=== PATIENT | female | born 1970 | race Caucasian/White ===

== ENCOUNTER → 2018-08-16 | Outpatient (REF) | payer OTHER ==
[~2018-08-16] MED LIST: AMBI10TA PO; AMIT25TA PO; BUPR10TASR PO; CLON1TAB8 PO; CLON2TAB7 PO; HYDR12.55 PO; IBUP80TA PO; METH75TA PO; PERCOCET PO; WELL75TA PO; ibuprofen OR; tylenol OR
[2018-08-16 20:49] LABS: ALBUMIN 3.8 GM/DL (3.2-5.2); ALT/SGPT 10 U/L (12-78); BILIRUBIN,TOTAL 0.3 MG/DL (0.2-1.0); BLOOD UREA NITROGEN 11 MG/DL (7-18); CALCIUM LEVEL 8.3 MG/DL (8.5-10.1); CARBON DIOXIDE LEVEL 27 MEQ/L (21-32); CHLORIDE LEVEL 110 MEQ/L (98-107); CHOLESTEROL LEVEL 168 MG/DL (<200); CREATININE FOR GFR 0.77 MG/DL (0.55-1.30); GLOMERULAR FILTRATION RATE > 60.0 (>58); GLUCOSE, FASTING 79 MG/DL (70-100); HDL CHOLESTEROL 70 MG/DL (>40); LDL CHOLESTEROL 90 MG/DL (<100); NON-HDL-C 98 MG/DL; POTASSIUM SERUM 4.6 MEQ/L (3.5-5.1); SODIUM LEVEL 140 MEQ/L (136-145); THYROID STIMULATING HORMONE 0.786 uIU/ML (0.358-3.740); TOTAL PROTEIN 6.8 GM/DL (6.4-8.2); TRIGLYCERIDES LEVEL 42 MG/DL (<150)
[2018-08-16 20:57] LABS: HEMOGLOBIN A1c 5.5 %
== END ==
LOC: M SFHCLERA 15:54
PROVIDERS: ATTEND Family Medicine
DX: E66.9 Obesity, unspecified (principal)

== ENCOUNTER → 2023-07-28 | Outpatient (CLI) | payer OTHER ==
[~2023-07-28] MED LIST changes: -AMIT25TA PO; +AMIT25TA19 PO; +METH-1165 PO; -METH75TA PO
== END ==
LOC: M WHC 13:53
PROVIDERS: ATTEND Family Medicine
DX: Z12.31 Encounter for screening mammogram for malignant neoplasm of breast (principal)